=== PATIENT | female | born 1950 | race Caucasian/White ===

== ENCOUNTER 2020-06-04 12:20 | Inpatient (IN) | payer MEDICARE, SELFPAY ==
[2020-06-04 12:33] VITALS: BP 129/84; PULSE 89; RESP 12; TEMP 36.4; O2SAT 98; BMI 19.2
--- NOTE | 2020-06-04 12:39 | ED.ARRPALP ---
HPI - Arrhythmia/Palpitations General Chief Complaint: Arrhythmia/Palpitations Stated Complaint: tachycardia Time Seen by Provider: 06/04/20 12:38 Source: patient and EMS Mode of arrival: EMS Limitations: no limitations History of Present Illness complaint: rapid heart beat Onset (ago): minute(s) (30) Duration: now resolved Severity: severe Context: occurred during exertion Associated symptoms: denies other symptoms Treatments prior to arrival: vagal maneuvers Related Data Allergies Allergy/AdvReac Type Severity Reaction Status Date / Time No Known Allergies Allergy Verified 06/04/20 12:39 Review of Systems Review of Systems: Constitutional : No Weight loss, No Fever, No Chills, positive fatigue during episoe ENT/Mouth : No sore throat, No Rhinorrhea Eyes: No Eye Pain, No Swelling Cardiovascular : no Chest Pain, no SOB, no Dyspnea on Exertion, No Orthopnea, No Edema, positive Palpitations Respiratory : No Cough, No Sputum Gastrointestinal : pos Nausea, No Vomiting, No Diarrhea, No abdominal Pain, No Hematochezia, No Melena Genitourinary : No Dysuria, No Urinary Frequency Musculoskeletal : No joint pain, No Myalgias, No Joint Swelling Skin : No Skin Lesions, No rash Neuro : No Weakness, No Numbness, No Dizziness, No Headache Psych : No Anxiety/Panic, No Depression All other systems reviewed and are negative [facility] Past Medical History Medical History No known health problems No known health problems Social History Social History Alcohol intake: current Alcohol intake frequency: 0-2 drinks per day Alcohol type: wine Smoking Status: Never smoker Use of substances other than those prescribed or required for medical reasons: No Advance Directives: No Advance Directives Information Provided: No Physical Exam Vital Signs: Vital Signs: Vital Signs Temp Pulse Resp BP Pulse Ox 06/04/20 12:33 97.5 F 89 12 129/84 98 Body Mass Index 19.2 Appearance: Alert. Oriented X3. No acute distress. Eyes: Pupils equal, round and reactive to light. ENT: Pharynx normal. Neck: Normal inspection. Neck supple. CVS: Normal heart rate and rhythm. Pulses normal. Respiratory: No respiratory distress. Breath sounds normal. Abdomen: Soft and nontender. Skin: Skin warm and dry. Normal skin color. Normal skin turgor. Extremities: No lower extremity edema. No calf ttp Neuro: Oriented X 3. No motor deficit. No sensory deficit. Course Reevaluation(s) Reevaluation #1: review of pre hospital EKG with ice - SVT noted Reevaluation #2: signed out to Dr. Beck pending repeat troponin if flat anticipate DC home MDM - Arrhythmia/Palpitations MDM Narrative Medical decision making narrative: healthy very active 70 yo female with episode of SVT that responded to vagal maneuvers strip not shown to me but presumed SVT per RN report from EMS, currently asytmptomatic, no CP, very active, no PE risk factors, at [facility] time will monitor and obtain basic labs, will likely need holter and ECHO as outpatient Lab Data Result diagrams: 06/04/20 13:13 06/04/20 13:14 Labs: Lab Results 06/04/20 06/04/20 06/04/20 Range/Units 13:13 13:14 13:14 WBC 8.2 (4.8-10.8) X10*3/uL RBC 3.86 L (4.20-5.50) X10*6/uL Hgb 13.0 (12.0-16.0) g/dl Hct 39.6 (37-47) % MCV 102.6 H (80-98) fL MCH 33.7 H (27.0-33.0) pg MCHC 32.8 (31.0-35.0) g/dl RDW 12.6 (11.0-16.0) % Plt Count 176 (160-400) X10*3/uL MPV 11.2 (9.4-12.3) fL Immature Gran % (Auto) 0.4 (0.0-0.4) % Neut % (Auto) 79.7 H (45-73) % Lymph % (Auto) 11.8 L (20-40) % Gates % (Auto) 6.5 (2-11) % Eos % (Auto) 1.0 (0-4) % Baso % (Auto) 0.6 (0-2) % Lymph # (Auto) 1.0 L (1.2-4.9) X10*3/uL Gates # (Auto) 0.5 (0.1-1.2) X10*3/uL Eos # (Auto) 0.1 (0.0-0.4) X10*3/uL Baso # (Auto) 0.1 (0.0-0.2) X10*3/uL Abs Immat Gran (auto) 0.03 (0.00-0.03) X10*3/uL Absolute Neuts (auto) 6.5 (2.0-8.3) X10*3/uL Absolute Nucleated RBC 0.000 (0.0-0.012) X10*3/uL Nucleated RBC % (auto) 0.0 (0.0-0.2) /100WBC Sodium 142 (135-145) mmol/L Potassium 4.8 (3.3-5.1) mmol/l Chloride 106 (96-108) mmol/L Carbon Dioxide 28 (22-29) mmol/L Anion Gap 13 (12-20) BUN 15 (9-16) mg/dL Creatinine 0.83 (0.5-1.4) mg/dL Estim Creat Clear Calc 48.0 Estimated GFR > 60 Random Glucose 87 (60-115) mg/dL Calcium 9.3 (8.4-10.2) mg/dL Magnesium 2.0 (1.6-2.6) mg/dL Total Bilirubin 0.9 (0.0-1.0) mg/dL Direct Bilirubin 0.3 (0.0-0.5) mg/dL AST 53 H (5-31) U/L ALT 36 H (0-31) U/L Alkaline Phosphatase 49 (39-117) U/L Troponin I High Sens 20.5 H (<3.5-17.0) ng/L B-Natriuretic Peptide 89 (<100) pg/mL Total Protein 6.4 L (6.5-8.0) g/dL Albumin 4.4 (3.5-5.0) g/dL Lipase 7 L (8-78) U/L TSH 0.87 (0.32-4.0) mIU/mL Beta HCG, Quant 3 mIU/mL ECG Data ECG interpretation date: 06/04/20 ECG interpretation time: 13:24 Interpretation: Rate: 75 Rhythm: NSR [place]: normal Normal P waves. Normal SARAH. Normal QRS complex. ST T wave : normal qTC: normal prior studies: no acute ischemia The study has been interpreted contemporaneously by me. .
--- NOTE | 2020-06-04 12:40 | XR_ITS ---
EXAMINATION: XR CHEST CLINICAL INFORMATION: Palpitations COMPARISON: None TECHNIQUE: Portable upright AP view of the chest was obtained. FINDINGS: There is no lobar or segmental airspace consolidation or definite groundglass opacity. The heart is normal in size. The vascularity is normal. The hilar and mediastinal contours are normal. No visible acute bony abnormality. There are degenerative changes upper lumbar spine and mild lumbar curvature. IMPRESSION: Unremarkable examination.
[2020-06-04 13:23] LABS: MANUAL DIFF FLAG NO
[2020-06-04 13:26] LABS: Basophils Absolute Auto 0.1 X10*3/uL (0.0-0.2); Basophils Percent Auto 0.6 % (0-2); Eosinophils Absolute Auto 0.1 X10*3/uL (0.0-0.4); Hematocrit 39.6 % (37-47); Imm Gran Abs Auto 0.03 X10*3/uL (0.00-0.03); Imm Gran Pct Auto 0.4 % (0.0-0.4); Lymphocytes Percent Auto 11.8 % (20-40); Mean Corpuscular HGB Conc 32.8 g/dl (31.0-35.0); Mean Corpuscular Hemoglobin 33.7 pg (27.0-33.0); Mean Corpuscular Volume 102.6 fL (80-98); Mean Platelet Volume 11.2 fL (9.4-12.3); Monocytes Absolute Auto 0.5 X10*3/uL (0.1-1.2); Monocytes Percent Auto 6.5 % (2-11); Neutrophils Absolute Auto 6.5 X10*3/uL (2.0-8.3); Neutrophils Percent Auto 79.7 % (45-73); Platelet Count 176 X10*3/uL (160-400); Red Blood Count 3.86 X10*6/uL (4.20-5.50); Red Cell Distribution Width 12.6 % (11.0-16.0); White Blood Count 8.2 X10*3/uL (4.8-10.8)
[2020-06-04 13:50] LABS: Alanine Aminotransferase 36 U/L (0-31); Albumin Level 4.4 g/dL (3.5-5.0); Alkaline Phosphatase 49 U/L (39-117); Anion Gap 13 (12-20); Aspartate Amino Transferase 53 U/L (5-31); Bilirubin Direct 0.3 mg/dL (0.0-0.5); Bilirubin Total 0.9 mg/dL (0.0-1.0); Blood Urea Nitrogen 15 mg/dL (9-16); Calcium 9.3 mg/dL (8.4-10.2); Carbon Dioxide 28 mmol/L (22-29); Chloride 106 mmol/L (96-108); Estimated Glomerular Filt Rate > 60; Glucose Random 87 mg/dL (60-115); Lipase 7 U/L (8-78); Potassium 4.8 mmol/l (3.3-5.1); Sodium 142 mmol/L (135-145); Total Protein 6.4 g/dL (6.5-8.0)
[2020-06-04 14:01] LABS: B Type Natriuretic Peptide 89 pg/mL (<100); Troponin-I High Sensitivity 20.5 ng/L (<3.5-17.0)
--- NOTE | 2020-06-04 14:05 | PC.NURSE ---
pt ambulated to bathroom w/a steady gait. MD ordered repeat troponin at 1615.
--- NOTE | 2020-06-04 14:23 | PC.NURSE ---
, IN wr whats providers to know that pt is a daily excersice fenatic. this am had high octain caffiene drink, no other food or drink then started cardiac workout. episode occured while patient was exercising.
--- NOTE | 2020-06-04 14:25 | PC.NURSE ---
please call gage, with update [phone] and [phone]
[2020-06-04 14:40] LABS: Thyroid Stimulating Hormone 0.87 mIU/mL (0.32-4.0)
[2020-06-04 14:44] LABS: HCG Quantitative 3 mIU/mL
--- NOTE | 2020-06-04 14:51 | PC.NURSE ---
APROX 1430 DOC FELIPA CAME TO WR TO UPDATE FAMILY. THEY HAD JUST LEFT. THIS RN CALLED WITH UPDATE FROM MD SHORTLY AFTERWARDS. ALL ARE AWARE OF PLAN FOR REPEAT TROP THEN DISPOSITION
[2020-06-04 15:40] VITALS: BP 118/71; PULSE 77; RESP 13; TEMP 36.8; O2SAT 96
[2020-06-04 17:10] VITALS: BP 116/61; PULSE 80; RESP 15; TEMP 36.7; O2SAT 97
[2020-06-04 18:00] VITALS: BP 115/62; PULSE 87; RESP 18; O2SAT 97
[2020-06-04 18:04] LABS: Troponin-I High Sensitivity 62.5 ng/L (<3.5-17.0)
--- NOTE | 2020-06-04 18:48 | ECG_ITS ---
Test Reason : INCRE TROP Blood Pressure : / mmHG Vent. Rate : 094 BPM Atrial Rate : 094 BPM P-R Int : 146 ms QRS Dur : 086 ms QT Int : 364 ms P-R-T Axes : 074 057 079 degrees QTc Int : 455 ms Normal sinus rhythm RSR' or QR pattern in V1 suggests right ventricular conduction delay Possible Left atrial enlargement Nonspecific ST abnormality Abnormal ECG NO PREVIOUS EKG Referred By: Min Beck Electronically Signed By:CARLOS PAYNE MD
[2020-06-04] MEDS: Aspirin 81 MG TAB.CHEW 324 MG PO (19:08)
--- NOTE | 2020-06-04 21:17 | HP_ITS ---
DATE OF SERVICE: 06/04/2020 CHIEF COMPLAINT: Fast heart rate. HISTORY OF PRESENT ILLNESS: 70-year-old woman presenting to the ER with complaints of elevated heart rate. She reports that yesterday she had climbed [email or web address] and when she came home, she had some gas, then she drinks 2 glasses of wine. She reports that she knows that she had not drink enough water. She woke up this morning to use her elliptical bike and suddenly felt her heart rate fast. She reports she took a deep breath in, but that did not help. Her checked her heart rate and it was up to 160. EMS was called. Upon arrival, EMS checked her vital signs and found her heart rate to be 170 to 180. She denied chest pain, shortness of breath, nausea, vomiting, or diarrhea. Vasovagal maneuvers were attempted, but unsuccessful. She then had 2 ice packs placed on her chest, which she reports seem to help and her heart rate came down to 80s to 90s. She was also noted to be hypotensive after this at 89/59, but did improve to 128/79. Upon arrival to the ER, chest x-ray was obtained, which was negative for consolidation or effusion. EKG showed normal sinus rhythm with no acute ST-wave abnormalities. However, troponin was obtained and initially was 20.5 with repeat of 62.5. The patient continued to not have any chest pain or shortness of breath. She was given a full dose of aspirin and she will be admitted for further management and treatment of elevated troponin with tachycardia. PAST MEDICAL HISTORY: Hyperlipidemia. PAST SURGICAL HISTORY: None. SOCIAL HISTORY: Lives with her . She reports occasional alcohol use. Denies tobacco or illicit drug use. She is very active, exercises daily. FAMILY HISTORY: Reports one aunt who had a fatal MD at the age of 49 and reported that she was a smoker. ALLERGIES: NO KNOWN ALLERGIES. MEDICATIONS: Simvastatin 40 mg at bedtime. REVIEW OF SYSTEMS: CONSTITUTIONAL: Denies recent fever, chills, or decrease in appetite. RESPIRATORY: Denies any shortness of breath, cough, or sputum production. CARDIOVASCULAR: Denies any chest pain, orthopnea, PND, or edema. Reported tachycardia. ABDOMEN: No nausea, vomiting, or diarrhea. GENITOURINARY: Denies any dysuria, frequency, or hematuria. MUSCULOSKELETAL: Denies any joint pain or swelling. NEUROPSYCH: Denies any weakness or seizures. All other systems are reviewed and are negative. PHYSICAL EXAMINATION: CONSTITUTIONAL: Resting in bed, appearing in no acute distress. VITAL SIGNS: 115/62, 87, 18, 97% on room air. SKIN: Intact without rash or open sores. HEENT: Head is normocephalic, atraumatic. Eyes, pupils are PERRLA. Sclerae anicteric. Mouth and throat: Mucous membranes are intact and moist. NECK: Supple. No lymphadenopathy. No JVD noted. CHEST: Clear to auscultation without wheezes, rhonchi, or rales. HEART: Regular rate and rhythm. Clear S1, S2. No murmurs, rubs, or gallops. ABDOMEN: Positive bowel sounds. Soft, nontender. No hepatomegaly or splenomegaly noted. NEURO: The patient is alert and oriented x3. Cranial nerves II through XII are grossly intact without focal deficits. LABORATORY DATA: WBC 8.2, hemoglobin 13.0, hematocrit 39.6, platelets 176. Sodium is 142, potassium 4.8, chloride is 106, BUN is 15, creatinine is 0.83. Troponin 20.5, 62.5. ASSESSMENT AND PLAN: A 70-year-old woman, who is being admitted with initially tachycardia, unknown if sinus tachycardia versus SVT, and subsequently found to have an abnormal troponin. EKG showed normal sinus rhythm with no acute ST-wave abnormalities and the patient never had any chest pain. 1. Elevated troponin. Possibly secondary myocardial infarction to tachycardia. The patient denied ever having any chest pain. An EKG did not show any ischemic changes. She did receive a full dose of aspirin while in the ER. Cardiology to follow, echocardiogram in the morning. Continue statin. Monitor on telemetry. If 3rd troponin is noted to be significantly elevated and there is concern for ischemic changes, consider heparin or therapeutic Lovenox. 2. Hyperlipidemia. Continue statin. 3. Mild transaminitis. May be related to dehydration. We will recheck LFTs in the morning. 4. Deep vein thrombosis prophylaxis with Lovenox. 5. Case discussed with Dr. Floyd. 6. Full code. ALEN Lema JR/ALINA / [id number] Addendum by : Pt seen and examined separetely. I agree with UNIT TECHNICIAN, note assessment and plan. This is a 70 yo F with no significant pmhx who presents with palputations, unclear rhythm at this time, found to have elevated troponing. EKG done on admission showed NS with no ischemic changes. Trop most likely type 2 For full note, please see above MTDD
[2020-06-04 21:37] VITALS: BP 123/75; PULSE 80; RESP 16; TEMP 36.9; O2SAT 94
[2020-06-04] MEDS: Atorvastatin Calcium 20 MG TABLET PO (21:38)
[2020-06-04] MEDS: Enoxaparin Sodium 40 MG/0.4 ML SYRINGE SUBCUT (21:38)
[2020-06-04] MEDS: 0.9 % Sodium Chloride 1,000 ML 100 ML IVCONT (21:39)
[2020-06-04 21:45] LABS: Troponin-I High Sensitivity 57.3 ng/L (<3.5-17.0)
[2020-06-04 23:23] VITALS: BP 100/56; PULSE 79; RESP 18; TEMP 37; O2SAT 94
[2020-06-05] MEDS: 0.9 % Sodium Chloride Flush 3 ML SYRINGE IVFLUSH ×2 (00:34→07:46)
[2020-06-05 04:01] VITALS: BP 108/65; PULSE 74; RESP 16; TEMP 36.6; O2SAT 95
[2020-06-05 06:25] LABS: MANUAL DIFF FLAG NO
[2020-06-05 06:45] LABS: Basophils Percent Auto 0.9 % (0-2); Eosinophils Absolute Auto 0.1 X10*3/uL (0.0-0.4); Eosinophils Percent Auto 3.3 % (0-4); Hematocrit 37.4 % (37-47); Hemoglobin 12.2 g/dl (12.0-16.0); Imm Gran Abs Auto 0.01 X10*3/uL (0.00-0.03); Imm Gran Pct Auto 0.2 % (0.0-0.4); Lymphocytes Absolute Auto 1.5 X10*3/uL (1.2-4.9); Lymphocytes Percent Auto 35.3 % (20-40); Mean Corpuscular HGB Conc 32.6 g/dl (31.0-35.0); Mean Corpuscular Hemoglobin 33.3 pg (27.0-33.0); Mean Corpuscular Volume 102.2 fL (80-98); Mean Platelet Volume 12.1 fL (9.4-12.3); Monocytes Absolute Auto 0.5 X10*3/uL (0.1-1.2); Neutrophils Absolute Auto 2.1 X10*3/uL (2.0-8.3); Neutrophils Percent Auto 48.3 % (45-73); Platelet Count 168 X10*3/uL (160-400); Red Blood Count 3.66 X10*6/uL (4.20-5.50); Red Cell Distribution Width 12.7 % (11.0-16.0); White Blood Count 4.3 X10*3/uL (4.8-10.8)
--- NOTE | 2020-06-05 07:00 | CA_ITS ---
Transthoracic Echocardiogram Patient (Last, First, Middle): Pricilla Roy, Gender: Female Date of : 1950 Age: 70 Procedure Date: 06/05/2020 Procedure Type: Transthoracic E[place] [facility] [place]: 157.48 cm Weight: 47.63 kg BSA: 1.45 m2 Heart Rate: bpm BP: 121 / 88 mmHg Warehouse Laborer: MARLENI Referring MD: Betty Ibrahim NP Symptoms: Tachycardia, Elevated Troponin Study Quality: Fair ECG Rhythm: Sinus Conclusions: - The left ventricular systolic function is normal. The visually estimated ejection fraction is between 60-65%. - No obvious valvular pathology seen on this study. 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 Findings Left Ventricle Normal left ventricular cavity size. There is normal left ventricular wall thickness. The left ventricular systolic function is normal. The visually estimated ejection fraction is between 60-65%. There is no evidence of regional wall motion abnormalities. Diastolic function is normal for age. Right Ventricle Normal right ventricular cavity size and systolic function. Atria The left atrium is normal in size. The right atrium is normal in size. 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 Aortic Valve There is a normal trileaflet aortic valve. There is no aortic valve stenosis. There is no aortic valve regurgitation. Mitral Valve The mitral valve appears normal. There is mild mitral valve regurgitation. There is no mitral valve stenosis. Tricuspid Valve Normal tricuspid valve structure. There is mild tricuspid valve regurgitation. The pulmonary artery systolic pressure is normal. Great Vessels The aortic annulus, sinuses of valsalva, and asc aorta are normal in size. Venous The inferior vena cava is normal in size and collapses greater than 50% with inspiration. Pericardium/Pleural There is no evidence of pericardial effusion. Prior Study Comparison No prior study available for comparison. Recommendations, Care & Conclusions No obvious valvular pathology seen on this study. Measurements 2D Linear Measurements IVSd: 0.83 0.6-0.9/0.6-1.0 cm LVIDd: 3.45 3.9-5.3/4.2-5.9 cm LVIDs: 2.42 2.0-3.6 cm LVPWd: 0.76 0.7-1.1 cm Ao Root: 2.60 2.1-3.5 cm LV Mass: 90.40 67-162/88-224 g LVOT Diam: 1.85 3.0+(-)1.3 cm Mitral Valve MV Pk E: 0.80 MV PK A: 0.67 MV Decel Time: 233.21 E/A: 1.20 Decel Eaton: 3.44 Aortic Valve AoV Pk Tommy: 1.34 AoV Pk Grad: 7.17 LVOT LVOT Pk Tommy: 1.14 LVOT Mn Tommy: 0.74 LVOT VTI: 0.26 LVOT Pk Grad: 5.24 LVOT Mn Grad: 2.65 LVOT Diam: 1.85 LVOT Area: 2.68 Diastolic Function MV Pk E: 0.80 MV Pk A: 0.67 E/A: 1.20 Tricuspid Valve TR Pk Tommy: 2.29 TR Pk Grad: 20.89 RA Press: 3.00 RVSP: 23.00 Great Vessels Aorta Ao Root-2D: 2.60 2.0-3.7 cm Ao Asc: 2.60 2.1-3.4 cm Updated in Other Vendor System with Status of Final Kenneth Chambers MD electronically signed on 06/05/2020 3:57:13 PM with status of Final
[2020-06-05 07:06] LABS: Alanine Aminotransferase 25 U/L (0-31); Albumin Level 3.9 g/dL (3.5-5.0); Alkaline Phosphatase 43 U/L (39-117); Anion Gap 10 (12-20); Aspartate Amino Transferase 35 U/L (5-31); Bilirubin Direct 0.3 mg/dL (0.0-0.5); Bilirubin Total 0.6 mg/dL (0.0-1.0); Blood Urea Nitrogen 20 mg/dL (9-16); Calcium 8.8 mg/dL (8.4-10.2); Carbon Dioxide 25 mmol/L (22-29); Chloride 109 mmol/L (96-108); Creatinine Clr Calc Pharmacy 49.9; Estimated Glomerular Filt Rate > 60; Glucose Random 83 mg/dL (60-115); Potassium 4.2 mmol/l (3.3-5.1); Sodium 140 mmol/L (135-145); Total Protein 5.7 g/dL (6.5-8.0)
[2020-06-05 07:24] LABS: Thyroid Stimulating Hormone 1.75 mIU/mL (0.32-4.0)
[2020-06-05 07:38] VITALS: BP 121/88; PULSE 66; RESP 18; TEMP 36.1; O2SAT 95
[2020-06-05] MEDS: 0.9 % Sodium Chloride 1,000 ML 100 ML IVCONT (07:49)
--- NOTE | 2020-06-05 11:34 | P.CONCA_ITS ---
History of Present Illness History of Present Illness Date of Consult: June 05, 2020 This is a cardiology consultation regarding tachycardia. patient is an extremely active person at baseline. She hikes very regularly. She did a local hike 2 days ago which was about 2 miles or so. Then she had a couple g lasses of wine that night. The next morning she had some coffee but apparently did not drink enough water. Then she went to her elliptical bike and then she noted palpitations. Her checked her heart rate and was up to the 160s. The EMS was called. EMS heart rate was 170-180/Min. However, I am not able to review this EKG strip as it is not available in the paper chart or scanned in to expense. She did not have any chest pain or shortness of breath or any other complaints. Vagal maneuvers where attempted but not successful. Then she had to ice packs placed on his chest and then the heart rate came to the normal sinus rhythm. Brief hypotension which resolved. Patient now feels back to normal self. No anginal-type symptoms or shortness of breath or any other cardiac complaints. No prior history of any coronary disease or myocardial infarction or cardiomyopathy or in fact anything else at all. Extremely healthy And active at baseline. Chief complaint: tachycardia Review of Systems Review of Systems: cardiac-positive for palpitations, resolved now; negative angina or shortness of breath or leg swelling or syncopal episodes. Remainder of the 10 system review negative. [facility] Past Medical History Medical History No known health problems No known health problems Family History Pertinent family history: Reports an aunt with fatal CO in her 40s. Social History Social History Household Members: Spouse Housing: House Do you presently have visiting nurse or other home services: No Alcohol intake: current Alcohol intake frequency: 0-2 drinks per day Alcohol type: wine Smoking Status: Never smoker Use of substances other than those prescribed or required for medical reasons: No Currently Displaying Signs/Symptoms of Drug Intoxication Withdrawal: No Have you been hit, kicked, punched, or otherwise hurt by someone within the past year? If so, by whom?: No Do you feel safe in your current relationship?: Yes Is there a partner from a previous relationship who is making you feel unsafe now?: No Are you made to feel afraid or neglected: No Advance Directives: No Advance Directives Information Provided: No Do you have thoughts of harming others: None Do you have a plan to hurt others: No Plan Meds Allergies Allergy/AdvReac Type Severity Reaction Status Date / Time No Known Allergies Allergy Verified 06/04/20 12:39 Home Medications Medication Instructions Recorded Confirmed Type simvastatin 1 tab PO BEDTIME 06/04/20 06/04/20 History Physical Exam Vital Signs: Vital Signs: Vital Signs Temp Pulse Resp BP Pulse Ox 06/05/20 07:38 97.0 F 66 18 121/88 95 06/05/20 04:01 97.9 F 74 16 108/65 95 06/04/20 23:23 98.6 F 79 18 100/56 L 94 06/04/20 21:37 98.4 F 80 16 123/75 94 06/04/20 18:00 87 18 115/62 97 06/04/20 17:10 98.1 F 80 15 116/61 97 06/04/20 15:40 98.2 F 77 13 118/71 96 06/04/20 12:33 97.5 F 89 12 129/84 98 Body Mass Index 19.2 Comfortable, no distress No pallor, icterus or cyanosis HEENT -unremarkable JVD- normal Cardiac- normal heart sounds, no murmurs, gallops or rubs, normal PMI Respiratory-normal breath sounds bilaterally, no crackles, no wheeze Abdomen- soft, nontender Neuro- alert and oriented Lower extremities- no significant edema, warm well perfused Results Labs and Meds Result diagrams: 06/05/20 05:22 06/05/20 05:22 Lab results: Laboratory Results - last 24 hr 06/04/20 06/04/20 06/04/20 13:13 13:14 13:14 WBC 8.2 RBC 3.86 L Hgb 13.0 Hct 39.6 MCV 102.6 H MCH 33.7 H MCHC 32.8 RDW 12.6 Plt Count 176 MPV 11.2 Immature Gran % (Auto) 0.4 Neut % (Auto) 79.7 H Lymph % (Auto) 11.8 L [place] % (Auto) 6.5 Eos % (Auto) 1.0 Baso % (Auto) 0.6 Lymph # (Auto) 1.0 L [place] # (Auto) 0.5 Eos # (Auto) 0.1 Baso # (Auto) 0.1 Abs Immat Gran (auto) 0.03 Absolute Neuts (auto) 6.5 Absolute Nucleated RBC 0.000 Nucleated RBC % (auto) 0.0 Sodium 142 Potassium 4.8 Chloride 106 Carbon Dioxide 28 Anion Gap 13 BUN 15 Creatinine 0.83 Estim Creat Clear Calc 48.0 Estimated GFR > 60 Random Glucose 87 Calcium 9.3 Magnesium 2.0 Total Bilirubin 0.9 Direct Bilirubin 0.3 AST 53 H ALT 36 H Alkaline Phosphatase 49 Troponin I High Sens 20.5 H B-Natriuretic Peptide 89 Total Protein 6.4 L Albumin 4.4 Lipase 7 L TSH 0.87 Beta HCG, Quant 3 06/04/20 06/04/20 06/05/20 17:16 21:03 05:22 WBC RBC Hgb Hct MCV MCH MCHC RDW Plt Count MPV Immature Gran % (Auto) Neut % (Auto) Lymph % (Auto) [place] % (Auto) Eos % (Auto) Baso % (Auto) Lymph # (Auto) [place] # (Auto) Eos # (Auto) Baso # (Auto) Abs Immat Gran (auto) Absolute Neuts (auto) Absolute Nucleated RBC Nucleated RBC % (auto) Sodium Potassium Chloride Carbon Dioxide Anion Gap BUN Creatinine Estim Creat Clear Calc Estimated GFR Random Glucose Calcium Magnesium Total Bilirubin Direct Bilirubin AST ALT Alkaline Phosphatase Troponin I High Sens 62.5 H D 57.3 H B-Natriuretic Peptide Total Protein Albumin Lipase TSH 1.75 Beta HCG, Quant 06/05/20 06/05/20 05:22 05:22 WBC 4.3 L RBC 3.66 L Hgb 12.2 Hct 37.4 MCV 102.2 H MCH 33.3 H MCHC 32.6 RDW 12.7 Plt Count 168 MPV 12.1 Immature Gran % (Auto) 0.2 Neut % (Auto) 48.3 Lymph % (Auto) 35.3 [place] % (Auto) 12.0 H Eos % (Auto) 3.3 Baso % (Auto) 0.9 Lymph # (Auto) 1.5 [place] # (Auto) 0.5 Eos # (Auto) 0.1 Baso # (Auto) 0.0 Abs Immat Gran (auto) 0.01 Absolute Neuts (auto) 2.1 Absolute Nucleated RBC 0.000 Nucleated RBC % (auto) 0.0 Sodium 140 Potassium 4.2 Chloride 109 H Carbon Dioxide 25 Anion Gap 10 L BUN 20 H Creatinine 0.80 Estim Creat Clear Calc 49.9 Estimated GFR > 60 Random Glucose 83 Calcium 8.8 Magnesium Total Bilirubin 0.6 Direct Bilirubin 0.3 AST 35 H ALT 25 Alkaline Phosphatase 43 Troponin I High Sens B-Natriuretic Peptide Total Protein 5.7 L Albumin 3.9 Lipase TSH Beta HCG, Quant EKG Interpretation EKG Comments: EKG shows underlying sinus rhythm at 94/Min without any significant abnormalities. Nonspecific ST-T changes in the lateral leads. Assessment and Plan (1) Supraventricular tachycardia: Status: Acute (2) Elevated troponin: Status: Acute her history and presentation is suggestive of probable supraventricular tachycardia. Unfortunately, the EKG from EMS not available in the paper chart or scanned in. Based on resolution by ice pack, could be SVT. Troponin elevation is most likely demand related. Underlying CAD is possible but this does not sound like a plaque rupture. We can start her on a small dose of beta- blockers. Otherwise, she can be discharged home. Outpatient echocardiogram stress testing and Holter will be arranged. Advised to avoid strenuous physical activity till the testing is completed.
[2020-06-05 12:00] VITALS: BP 107/67; PULSE 71; RESP 20; TEMP 36.4; O2SAT 95
--- NOTE | 2020-06-05 13:16 | MHC.CM.PN ---
CM met with patient at the bedside who reports she is independent and lives with her . Patient states she does have a HCP, copy requested. Discussed discharge plan, home no services. family will provide transport. CM will continue to follow patient for discharge needs.
[2020-06-05 14:28] LABS: SARS COV2 PCR INHOUSE NEGATIVE (Negative)
[2020-06-05 15:52] VITALS: BP 129/75; PULSE 69; RESP 18; TEMP 36.2; O2SAT 97
--- NOTE | 2020-06-05 16:42 | P.DS_ITS ---
DS: Providers Provider Date of admission: 06/04/20 19:08 Primary care physician: Lester Holley MD Consults: 06/04/20 20:40 Consult to Physician Routine Consulting Provider: [facility] Reason for consultation: TACHYCARDIA, ELEVATED TROPONIN Has provider been notified: No DS: Diagnosis Discharge Diagnosis (1) Supraventricular tachycardia: Status: Acute (2) Elevated troponin: Status: Acute (3) Atrial septal aneurysm: Status: Acute DS: Summary Hospital Course Hospital Course: From the admission history and physical by hospitalist [facility]ENEFITS SPECIALIST Betty Ibrahim: 70-year-old woman presenting to the ER with complaints of elevated heart rate. She reports that yesterday she had climbed cookdinner and when she came home, she had some gas, then she drinks 2 glasses of wine. She reports that she knows that she had not drink enough water. She woke up this morning to use her elliptical bike and suddenly felt her heart rate fast. She reports she took a deep breath in, but that did not help. Her checked her heart rate and it was up to 160. EMS was called. Upon arrival, EMS checked her vital signs and found her heart rate to be 170 to 180. She denied chest pain, shortness of breath, nausea, vomiting, or diarrhea. Vasovagal maneuvers were attempted, but unsuccessful. She then had 2 ice packs placed on her chest, which she reports seem to help and her heart rate came down to 80s to 90s. She was also noted to be hypotensive after this at 89/59, but did improve to 128/79. Upon arrival to the ER, chest x-ray was obtained, which was negative for consolidation or effusion. EKG showed normal sinus rhythm with no acute ST-wave abnormalities. However, troponin was obtained and initially was 20.5 with repeat of 62.5. The patient continued to not have any chest pain or shortness of breath. She was given a full dose of aspirin and she will be admitted for further management and treatment of elevated troponin with tachycardia. She was admitted to the [facility]. The palpitations did not recur and there was no arrhythmia on telemetry. Troponin peaked and decreased. Cardiology was consulted. She was thought to have had SVT. She will be worked up with outpatient stress testing and Holter monitoring and pending workup, she was advised to avoid strenuous activity and dehydration. Echocardiography showed a small atrial septal aneurysm which was incidental and not thought to be related to the SVT. She will follow up with Dr Chambers as an outpatient. Time Spent with Patient Time attestation: Total time spent providing and/or coordinating discharge services: Physical Exam Vital Signs: Vital Signs: Vital Signs Temp Pulse Resp BP Pulse Ox 06/05/20 15:52 97.1 F 69 18 129/75 97 06/05/20 12:00 97.6 F 71 20 107/67 95 06/05/20 07:38 97.0 F 66 18 121/88 95 06/05/20 04:01 97.9 F 74 16 108/65 95 06/04/20 23:23 98.6 F 79 18 100/56 L 94 06/04/20 21:37 98.4 F 80 16 123/75 94 06/04/20 18:00 87 18 115/62 97 06/04/20 17:10 98.1 F 80 15 116/61 97 Body Mass Index 19.2 Const: General: healthy appearing and no acute distress Chest: Chest palpation & inspection: normal inspection of the chest Resp: Effort & Inspection: normal respiratory effort Auscultation: clear to auscultation bilaterally Cardio: Rate: regular rate Rhythm: regular rhythm Heart sounds: no murmurs Neuro: General: no focal motor deficits DS: Data Data Completed and Pending Labs on day of discharge: Labs from last 24 hours 06/05/20 06/05/20 06/05/20 13:25 05:22 05:22 WBC 4.3 L RBC 3.66 L Hgb 12.2 Hct 37.4 MCV 102.2 H MCH 33.3 H MCHC 32.6 RDW 12.7 Plt Count 168 MPV 12.1 Immature Gran % (Auto) 0.2 Neut % (Auto) 48.3 Lymph % (Auto) 35.3 [place] % (Auto) 12.0 H Eos % (Auto) 3.3 Baso % (Auto) 0.9 Lymph # (Auto) 1.5 [place] # (Auto) 0.5 Eos # (Auto) 0.1 Baso # (Auto) 0.0 Abs Immat Gran (auto) 0.01 Absolute Neuts (auto) 2.1 Absolute Nucleated RBC 0.000 Nucleated RBC % (auto) 0.0 Sodium 140 Potassium 4.2 Chloride 109 H Carbon Dioxide 25 Anion Gap 10 L BUN 20 H Creatinine 0.80 Estim Creat Clear Calc 49.9 Estimated GFR > 60 Random Glucose 83 Calcium 8.8 Total Bilirubin 0.6 Direct Bilirubin 0.3 AST 35 H ALT 25 Alkaline Phosphatase 43 Troponin I High Sens Total Protein 5.7 L Albumin 3.9 TSH Coronavirus (PCR) NEGATIVE 06/05/20 06/04/20 06/04/20 05:22 21:03 17:16 WBC RBC Hgb Hct MCV MCH MCHC RDW Plt Count MPV Immature Gran % (Auto) Neut % (Auto) Lymph % (Auto) [place] % (Auto) Eos % (Auto) Baso % (Auto) Lymph # (Auto) [place] # (Auto) Eos # (Auto) Baso # (Auto) Abs Immat Gran (auto) Absolute Neuts (auto) Absolute Nucleated RBC Nucleated RBC % (auto) Sodium Potassium Chloride Carbon Dioxide Anion Gap BUN Creatinine Estim Creat Clear Calc Estimated GFR Random Glucose Calcium Total Bilirubin Direct Bilirubin AST ALT Alkaline Phosphatase Troponin I High Sens 57.3 H 62.5 H D Total Protein Albumin TSH 1.75 Coronavirus (PCR) TTE 06/05/20: - The left ventricular systolic function is normal. The visually estimated ejection fraction is between 60-65%. - No obvious valvular pathology seen on this study. 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 Discharge Plan Discharge Patient Disposition: Home, Self-Care Referrals: Lester Holley MD [Primary Care Provider] - Kenneth Chambers MD [Physician] - 2 days Discharge Medications: Continued simvastatin 40 mg tablet 1 tab PO BEDTIME RF: 0 Discharge Orders: Discharge Order (Routine); Ordered 06/05/20 Ordered By: Naty Leyva Diet: regular diet Activity on Discharge: As tolerated Patient Instructions: Supraventricular Tachycardia (DC) Other Ambulatory Orders: ECG holter monitor 24 hour (Routine) Timeframe: 1 Week Facility: [facility] - Location: Radiology Ordered By: Kenneth CALDERA cardiolite stress test (Routine) Timeframe: 1 Week Facility: [facility] - Location: Nuclear Medicine Ordered By: Kenneth Chambers Activity Restrictions/Additional Instructions: you will need an outpatinet ECHO and holter monitor, decrease caffeine and alcohol intake Visit Report Forms: Patient Portal Discharge page Care Plan Goals: see Plan of Treatment Health Concerns: see Plan of Treatment Plan of Treatment: avoid strenuous activity pending stress test and Holter monitor follow up with [facility] [phone] [place] [address], [address] [place] [address]
== END 2020-06-05 17:43 | disposition home or self-care (01) | DRG 309 ==
LOC: HO.ED 19:03 → HO.IMC 19:58
PROVIDERS: Nurse Practitioner Acute Care; Admitting Provider Internal Medicine; Emergency Provider Emergency Medicine; PCP Internal Medicine; Visit Provider Family Medicine
DX: I47.1 Supraventricular tachycardia (principal); I25.3 Aneurysm of heart; E78.5 Hyperlipidemia, unspecified; R74.01 Elevation of levels of liver transaminase levels; Z20.828 Contact with and (suspected) exposure to other viral communicable diseases; Z79.899 Other long term (current) drug therapy
CPT/HCPCS: 36415; 71045; 80048; 80076; 83690; 83735; 83880; 84443; 84484; 84702; 85025; 87635; 93005; 93306; 99284; 99285; J1650

== ENCOUNTER → 2020-06-21 13:54 | Outpatient (REF) | payer MEDICARE, SELFPAY ==
--- NOTE | 2020-06-21 13:59 | ECG_ITS ---
Hook-up date: 2020-06-21 14:18:00 Duration: 24:58:00 Test Indications: SVT Medications: 13001 QRS complexes * Ventricular ectopics which represent % of total QRS comp. 20 Supraventricular ectopics which represent <1 % of total QRS comp. * Paced QRS complexs which represent % of total QRS comp. VENTRICULAR ECTOPY * Isolated * Bigeminal Cycles * Couplets * Runs * Beats in Runs * Beats LONGEST at * BPM at :: -- * Beats FASTEST at * BPM at :: -- SUPRAVENTRICULAR ECTOPY 15 Isolated 1 Couplets 1 Runs 3 Beats in Runs 3 Beats LONGEST at 84 BPM at 13:02:35 2020-06-22 3 Beats FASTEST at 84 BPM at 13:02:35 2020-06-22 HEART RATES 50 MIN at 07:08:34 2020-06-22 72 AVG 126 MAX at 11:51:42 2020-06-22 LONGEST RR 1.2640 secs at 06:54:07 2020-06-22 S-T LEVELS Channel 1 - 128 mm at 14:18:00 2020-06-21 - 128 mm at 14:18:00 2020-06-21 Channel 2 - 128 mm at 14:18:00 2020-06-21 - 128 mm at 14:18:00 2020-06-21 Channel 3 - 128 mm at 03:33:71 -- - 128 mm at 03:33:71 Basic rhythm Normal sinus rhythm No long pause or profound bradycardia Rare Premature atrial complexes No diary submitted Referred By: Kenneth Chambers Overread By: ANURAG MONTE MD
== END ==
LOC: HO.CARD 13:54
PROVIDERS: Visit Provider Internal Medicine
DX: I47.1 Supraventricular tachycardia (principal)
CPT/HCPCS: 93226

== ENCOUNTER → 2020-07-03 09:26 | Outpatient (REF) | payer MEDICARE, SELFPAY ==
--- NOTE | 2020-07-03 09:33 | CA_ITS ---
Acquisition Time: 2020-07-03 10:40:26 Total Exercise Time: 00:12:33 Test Indications: Palpitations Medications: SEE CHART Protocol: KATINA Max HR: 164 BPM 109% of Pred: 150 BPM Max BP: 132/072 mmHG Max Work Load: 14.4 METS Exercise stress test using Katina protocol total of 12 min 33 sec. METS 14.4. Pt tolerated well, denies any anginal sx. EKG without any arrhythmias no Ischemic changes. Normotensive response to exercise. Test reviewed with Dr. Chambers. Referred By: Kenneth Chambers Overread By: Marlys Meraz
== END ==
LOC: HO.CARD 09:26
PROVIDERS: PCP Internal Medicine; Visit Provider Internal Medicine
DX: I47.1 Supraventricular tachycardia (principal)
CPT/HCPCS: 93017

== ENCOUNTER → 2020-07-09 12:20 | Outpatient (BNVA) | payer MEDICARE, SELFPAY | PROVIDERS: PCP Internal Medicine; Referring Provider Internal Medicine; Visit Provider Internal Medicine | DX: I47.1 Supraventricular tachycardia (principal); I25.3 Aneurysm of heart | CPT/HCPCS: 99212 ==

== ENCOUNTER → 2020-07-26 07:23 | Outpatient (REF) | payer MEDICARE, SELFPAY ==
--- NOTE | 2020-07-26 07:26 | CA_ITS ---
Transthoracic Echocardiogram Patient (Last, First, Middle): Pricilla Roy, Gender: Female Date of : 1950 Age: 70 Procedure Date: 07/26/2020 Procedure Type: Transthoracic Echocardiogram Location: OP Height: 157.4 cm Weight: 48.08 kg BSA: 1.46 m2 Heart Rate: bpm Coutierier: NADER Mukherjee MD: Kenneth Chambers MD Roller Operator: Landon Ramirez MD Symptoms: I25.3 - Aneurysm of heart Study Quality: Excellent ECG Rhythm: Sinus Conclusions: - PFO present with reversal of shunt with Valsalva Findings Atria There is an interatrial septal aneurysm seen. There is a highly mobile atrial septum noted. Contrast study for right to left shunting is mildly positive. Contrast study for right to left shunting is severely positive with Valsalva maneuver. Patent foramen ovale detected using by contrast. There is shunt reversal with the release phase of the Valsalva maneuver. Updated in Other Vendor System with Status of Final Landon Ramirez MD electronically signed on 07/27/2020 2:51:26 PM with status of Final
== END ==
LOC: HO.CARD 07:23
PROVIDERS: Visit Provider Internal Medicine
DX: I25.3 Aneurysm of heart (principal)
CPT/HCPCS: 93308; 93321

== ENCOUNTER → 2021-07-09 10:52 | Outpatient (BNVA) | payer MEDICARE, SELFPAY | PROVIDERS: PCP Internal Medicine; Referring Provider Internal Medicine; Visit Provider Internal Medicine | DX: I47.1 Supraventricular tachycardia (principal); Q21.1 Atrial septal defect | CPT/HCPCS: 93005; 99212 ==